=== PATIENT | female | born 1945 | race Caucasian/White ===

== ENCOUNTER → 2017-02-03 | Outpatient (CLI) | payer OTHER ==
--- NOTE | 2017-02-03 14:31 | KCIC ---
EXAM: Left knee, 3 views. HISTORY: Pain. COMPARISON: None. FINDINGS: Frontal, lateral and oblique views of the left knee are obtained. There is no fracture, dislocation or subluxation. There is minimal patellofemoral osteoarthritis. There is a small joint effusion. There is a bone island within the lateral femoral condyle. IMPRESSION: Minimal patellofemoral osteoarthritis and small joint effusion. Electronically signed by: Oliva Wiseman MD (02/03/2017 2:28 PM) [place] [id number]
== END | disposition home or self-care (01) ==
LOC: KCIC 14:07
PROVIDERS: ATTEND Family Medicine
DX: M17.12 Unilateral primary osteoarthritis, left knee (principal); M25.462 Effusion, left knee
CPT/HCPCS: 73562

== ENCOUNTER → 2017-03-05 | Outpatient (CLI) | payer OTHER ==
--- NOTE | 2017-03-05 15:03 | KCIC ---
Examination: MRI of the left knee without contrast HISTORY: History of left knee pain COMPARISON: None available TECHNIQUE: Multiplanar, multisequence MR imaging of the left knee were performed without contrast. FINDINGS: The anterior cruciate ligament, posterior cruciate ligament appear intact. There is mild increased signal identified in the posterior horn of the medial meniscus at its attachment probably a tear. There is mild increased signal identified throughout the medial meniscus likely due to degeneration. The lateral meniscus appears intact. The medial collateral ligament is intact. Lateral collateral ligamentous complex including the fibular collateral ligament, biceps femoris tendon, popliteus tendon appear intact. The distal attachment of the iliotibial band appears intact. The extensor mechanism is intact. Moderate knee joint effusion. There is serpiginous low T1 signal, T2 signal identified in the subchondral region of the medial tibial plateau likely fracture with moderate trabecular edema identified in the medial tibial plateau extending into the lateral proximal tibia. The medial, lateral retinaculum appear intact. There is deep fissuring of cartilage identified in the patellar trochlea. There is superficial fraying of cartilage identified in the medial, lateral compartments. Mild tricompartmental degenerative changes. IMPRESSION: 1. Serpiginous low T1, T2 signal identified in the subchondral region of the medial tibial plateau likely nondisplaced fracture with surrounding moderate trabecular edema. 2. Increased signal identified in the posterior horn of the medial meniscus at its posterior root likely tear. 3. Moderate knee joint effusion. 4. 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 Report was called to Bridget at ordering physician's office at time of dictation. Electronically signed by: Bridger Quiroz MD (03/05/2017 3:00 PM) [id number]
== END | disposition home or self-care (01) ==
LOC: KCIC MRI 13:51
PROVIDERS: ATTEND Family Medicine
DX: M94.262 Chondromalacia, left knee (principal); M25.462 Effusion, left knee
CPT/HCPCS: 73721

== ENCOUNTER → 2017-05-05 | Outpatient (CLI) | payer OTHER ==
--- NOTE | 2017-05-06 16:05 | KCIC ---
DATE: 05/05/2017 EXAM: MAMMO KELY SCREENING BILATERAL HISTORY: Asymptomatic screening mammogram. Sister with a history of breast cancer diagnosed at age 61. COMPARISON: Prior mammograms from 07/27/2014, 05/07/2013 This study was interpreted with the benefit of Computerized Aided Detection (CAD). The breast parenchyma shows scattered fibroglandular densities. Breast parenchyma level B. FINDINGS: Bilateral CC and MLO views of the breasts were performed. Bilateral breast tomosynthesis was performed in CC and MLO projections. Right breast: There is an asymmetry in the right breast at middle depth on the posterior nipple line. Recommend additional views to include spot compression CC view. This finding is not definitively seen on the MLO view. There is subtle architectural distortion suspected on tomosynthesis (image 38 CC tomosynthesis). Left breast: There are no suspicious microcalcifications, masses or areas of architectural distortion. Left breast is stable from prior mammogram. IMPRESSION: Incomplete right mammogram. Additional views are recommended to include a spot compression CC view with possible tomosynthesis. Negative left mammogram. BI-RADS CATEGORY: 0 INCOMPLETE: NEEDS ADDITIONAL IMAGING EVALUATION AND/OR PRIOR MAMMOGRAMS FOR COMPARISON. RECOMMENDED FOLLOW-UP: ADD ADDITIONAL IMAGING PQRS compliance statement: Patient information was entered into a reminder system with a target due date 05/05/2018 for the next mammogram. Mammography is a sensitive method for finding small breast cancers, but it does not detect them all and is not a substitute for careful clinical examination. A negative mammogram does not negate a clinically suspicious finding and should not result in delay in biopsying a clinically suspicious abnormality. "Our facility is accredited by the [employer] Mammography Program."
== END | disposition home or self-care (01) ==
LOC: KCIC MAMMO 12:46
PROVIDERS: ATTEND Family Medicine
DX: Z12.31 Encounter for screening mammogram for malignant neoplasm of breast (principal); Z80.3 Family history of malignant neoplasm of breast
CPT/HCPCS: 77063; G0202; 77067

== ENCOUNTER → 2017-05-21 | Outpatient (CLI) | payer OTHER ==
--- NOTE | 2017-05-21 12:03 | KCIC ---
DATE: May 21, 2017 EXAM: DIGITAL DIAGNOSTIC RT with tomography HISTORY: Further evaluation of nodule seen centrally in the CC projection only. COMPARISON: Screening study dated May 05, 2017. This study was interpreted with the benefit of Computerized Aided Detection (CAD). 2-D digital mammographic view of the right breast was performed in the 90 degree mediolateral projection. 3-D digital tomosynthesis of the right breast was performed in the 90 degree mediolateral projection. Focal digital compression view of the right breast in the CC projection was performed. FINDINGS: The previously seen nodular density within the central aspect of the right breast in the CC projection resolves with the additional views. This is a benign finding. IMPRESSION: Benign finding of the right breast. Recommend routine screening mammography in one year. BI-RADS CATEGORY: 2 BENIGN FINDING RECOMMENDED FOLLOW-UP: 12M 12 MONTH FOLLOW-UP PQRS compliance statement: Patient information was entered into a reminder system with a target due date May 06, 2018 for the next mammogram. Mammography is a sensitive method for finding small breast cancers, but it does not detect them all and is not a substitute for careful clinical examination. A negative mammogram does not negate a clinically suspicious finding and should not result in delay in biopsying a clinically suspicious abnormality. "Our facility is accredited by the [employer] Mammography [employer]."
== END | disposition home or self-care (01) ==
LOC: KCIC MAMMO 09:44
PROVIDERS: ATTEND Family Medicine
DX: R92.8 Other abnormal and inconclusive findings on diagnostic imaging of breast (principal)
CPT/HCPCS: G0206; 77065

== ENCOUNTER → 2018-01-27 | Outpatient (CLI) | payer OTHER | END | disposition home or self-care (01) | LOC: KCIC 13:19 | DX: M25.522 Pain in left elbow (principal) | CPT/HCPCS: 73080 ==

== ENCOUNTER → 2018-08-25 | Outpatient (CLI) | payer OTHER ==
--- NOTE | 2018-08-25 17:44 | KCIC ---
Bilateral digital screening mammograms with 3-D tomosynthesis: Reason for examination: Routine screening. Comparison is made to previous studies dated 05/05/2017 and 07/27/2014. Bilateral mammograms in CC and oblique projections were obtained with 2-D imaging and 3-D tomosynthesis imaging on a Siemens Inspiration unit and reviewed on the workstation. Interpretation was made with the benefit of CAD. The skin and nipples show no abnormalities. No abnormal axillary lymph nodes are seen. The breast parenchyma shows scattered fatty and fibroglandular density. 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 There also appears to be 5.2 mm nodule in the 11:00 B position of the right breast. There also appears to be a faint 6.3 mm nodule present at approximately the 6:00 B position of the left breast. Further evaluation with ultrasound is recommended. There are no other new dominant masses, suspicious calcifications or architectural distortion. Impression: Small nodules in the 11:00 B position of the right breast and 6:00 B position of the left breast. Recommend further evaluation with ultrasound. BI-RADS Category 0: Incomplete. Needs additional imaging evaluation. "Our facility is accredited by the [employer] Mammography [employer]." This patient's information has been entered into a reminder system for the patient to be notified with the results of her examination and a target date for the next mammogram. Electronically signed by: Susy Ca MD (08/25/2018 5:41 PM) [id number]
== END | disposition home or self-care (01) ==
LOC: KCIC MAMMO 13:55
PROVIDERS: ATTEND Family Medicine
DX: Z12.31 Encounter for screening mammogram for malignant neoplasm of breast (principal); N63.11 Unspecified lump in the right breast, upper outer quadrant; N63.23 Unspecified lump in the left breast, lower outer quadrant
CPT/HCPCS: 77063; 77067

== ENCOUNTER → 2018-08-28 | Outpatient (CLI) | payer OTHER ==
--- NOTE | 2018-08-28 15:42 | KCIC ---
Bilateral breast ultrasound: Reason for examination: Nodules seen on screening mammogram. Comparison is made to mammographic exam dated 08/25/2018. Ultrasound examination was performed bilaterally in the areas of mammographic concern and in the axilla. In the right breast, no discrete cystic or solid nodules or architectural distortions are seen. No abnormal appearing lymph nodes are seen in the axilla. In the left breast in the 6:00 position 6 cm from the inframammary fold, there is a 4.9 x 4.7 mm fibrocystic type lesion. No other cystic or solid lesions are seen. No abnormal appearing lymph nodes are seen in the left axilla. IMPRESSION: No focal or suspicious abnormality seen in the right breast. Recommend reevaluation in 6 months with right breast mammograms and ultrasound. Benign-appearing 4.9 mm fibrocystic lesion in the 6:00 position of the left breast. Recommend 6 month sonographic follow-up. BI-RADS Category 3: Probably Benign. "Our facility is accredited by the [employer] Mammography [employer]." This patient's information has been entered into a reminder system for the patient to be notified with the results of her examination and a target date for the next mammogram. Electronically signed by: Susy Ca MD (08/28/2018 3:39 PM) [id number]
== END | disposition home or self-care (01) ==
LOC: KCIC US 07:47
PROVIDERS: ATTEND Family Medicine
DX: R92.8 Other abnormal and inconclusive findings on diagnostic imaging of breast (principal)
CPT/HCPCS: 76641

== ENCOUNTER → 2019-03-08 | Outpatient (CLI) | payer OTHER ==
--- NOTE | 2019-03-08 14:06 | KCIC ---
Right digital diagnostic mammogram with tomosynthesis and left breast ultrasound Reason for examination: Follow-up of probably benign right upper outer breast mammographic nodularity and left lower breast fibrocystic lesion. Comparison is made to previous study dated breast sonography August 28, 2018 and mammogram August 25, 2018 Routine CC and MLO digital views obtained. Interpretation was made with the benefit of CAD. Right mammogram: The skin and nipples show no abnormalities. No abnormal lymph nodes are seen. The breast parenchyma is scattered fibroglandular elements. (Breast density: Category B.) There are no suspicious masses, suspicious calcifications or architectural distortions. The right upper outer breast mid depth demonstrates a subcentimeter intramammary lymph node with fatty hilum representing the nodule in question, considered benign Left breast ultrasound: Left breast 6:00 position mid depth demonstrates a cystic lesion with thin internal septations versus a cluster of cysts measuring 5 x 3 mm, which may be partially collapsed since the prior study otherwise remains stable, considered probably benign. Impression: Right upper outer breast intramammary lymph node. Left lower breast subcentimeter fibrocystic lesion is stable to slightly smaller, considered probably benign. Follow-up left breast ultrasound 6 months is advised to document continued stability. Continuing screening mammography. BI-RADS Category 3: Probably benign. "Our facility is accredited by the [employer] Mammography Program." This patient's information has been entered into a reminder system for the patient to be notified with the results of her examination and a target date for the next mammogram. Electronically signed by: Meño Rivera MD (03/08/2019 2:02 PM) [id number]
== END | disposition home or self-care (01) ==
LOC: KCIC MAMMO 12:37
PROVIDERS: ATTEND Family Medicine
DX: N63.11 Unspecified lump in the right breast, upper outer quadrant (principal); N60.12 Diffuse cystic mastopathy of left breast
CPT/HCPCS: 76641; 77065; G0279; 77061

== ENCOUNTER → 2019-06-21 | Outpatient (CLI) | payer OTHER ==
--- NOTE | 2019-06-21 15:03 | KCIC ---
Bilateral renal ultrasound and bilateral renal artery duplex ultrasound study without comparison for uncontrolled hypertension and multiple medications. TECHNIQUE AND FINDINGS: Real-time grayscale and color Doppler evaluation of the kidneys and urinary bladder is performed along with color and spectral Doppler evaluation of the renal vasculature. FINDINGS: The right kidney measures 11.2 x 4.9 x 4.2 cm and the left measures 12.1 x 3.8 x 5.2 cm. There is no hydronephrosis or perinephric fluid involving either kidney. On the left there is at least one nonobstructing shadowing renal calculus measuring roughly 7 mm. On the right there are 2 exophytic simple appearing cyst. There is normal color flow to both kidneys. The urinary bladder is fluid distended and grossly unremarkable. The aorta is poorly visualized due to overlying bowel gas, but demonstrates peak systolic velocity of 138.8 cm/s. The proximal portion of both renal arteries is also obscured by bowel gas. Peak systolic velocity of the middle right renal artery is 178.2 cm/s, constituting a ratio 1.3, and the peak systolic velocity of the distal left renal artery is 153.9 cm/s, constituting a ratio of 1.1. There is no evidence of hemodynamic significant renal artery stenosis. IMPRESSION: 1. Poorly visualized proximal renal arteries bilaterally. There are no secondary signs of hemodynamically significant renal artery stenosis, however if there strong clinical concern, further evaluation with CTA should be considered. 2. Nonobstructing left renal calculi. 3. Simple exophytic cysts on the right. Electronically signed by: Jude Marie MD (06/21/2019 3:00 PM) [facility]
== END | disposition home or self-care (01) ==
LOC: KCIC US 07:47
PROVIDERS: ATTEND Family Medicine
DX: N20.0 Calculus of kidney (principal); N28.1 Cyst of kidney, acquired; I10 Essential (primary) hypertension
CPT/HCPCS: 76770

== ENCOUNTER → 2019-11-30 | Outpatient (CLI) | payer MEDICARE ==
--- NOTE | 2019-12-02 09:36 | SLEEP ---
DATE OF STUDY: 11/30/2019 SLEEP STUDY ATTENDING PHYSICIAN: Magdiel Orlando MD The patient is 73 years old who weighs 238 pounds with a BMI of 38. The patient had a previous sleep study and was positive for [place] and has been on CPAP at 13 cm water. The patient was referred for reevaluation. During the night study, the patient spent 422 minutes in bed and slept for 351 minutes with a sleep efficiency of 83%. Sleep latency was 30 minutes with a REM latency of 204 minutes. Sleep architecture showed normal stage 1 and stage 2 sleep, increased slow wave and reduced REM sleep, which was 12% of the total sleep time. During the initial diagnostic portion of the study, the patient slept for 69 minutes. During that time, the patient had 2 obstructive apneas, no mixed or central apneas and 33 hypopneas. The patient's AHI was 31 per hour with a supine AHI of 31 per hour and no REM sleep was observed. EKG monitoring revealed an average heart rate of 63 beats per minute, no sustained arrhythmias observed. No PLMs observed. Nocturnal oximetry study revealed a mean oxygen saturation of 95% with the lowest of 89%. The patient met the criteria for CPAP initiation. It was started at 7 cm water as the patient was unable to tolerate lower pressure. The patient did well at this pressure. The patient slept for 283 minutes. The patient had supine as well as REM sleep. The patient's AHI was 0 per hour and oxygen saturation remained above 91%. The patient used medium sized nasal pillows. IMPRESSION: 1. Severe obstructive sleep apnea at an AHI of 31 per hour. 2. No clinically significant nocturnal hypoxia. 3. No clinically significant periodic limb movements. RECOMMENDATIONS: 1. CPAP at 7 cm water completely eliminated the patient's sleep apnea and should be used on a nightly basis. 2. Follow up in 4-6 weeks to assess compliance with CPAP and to document clinical improvement. 3. Weight loss is strongly advised. 4. Avoid SKEIN WASHER depressants. 5. Cautioned regarding driving until symptoms of sleep apnea resolve with the use of CPAP. RK MOORE MD DR: NINA/leyla JOB#: [id number] / [id number] MAGDIEL Dinero MD
== END | disposition home or self-care (01) ==
LOC: RT 19:06
PROVIDERS: ATTEND Family Medicine
DX: G47.33 Obstructive sleep apnea (adult) (pediatric) (principal)
CPT/HCPCS: 95810

== ENCOUNTER → 2020-08-28 | Outpatient (CLI) | payer MEDICARE ==
--- NOTE | 2020-08-28 16:51 | RAD ---
Examination: 1. Bilateral digital diagnostic mammogram. 2. Limited left breast ultrasound. INDICATION: 74-year-old woman due for mammographic screening presenting for short-term follow-up prob ably benign left breast nodule at the 6:00 mid depth position. COMPARISON: Diagnostic mammogram and left breast ultrasound of 03/08/2019 and bilateral mammogram of TECHNIQUE: CC and MLO views of both breasts were obtained with 2-D and 3-D technique and reviewed wit h computer-aided detection. Targeted ultrasound of the left breast was next pursued. FINDINGS: Scattered fibroglandular densities. Negative right mammogram. Stable 2 cm mixed calcified and soft tissue mass in the lateral left breast, compatible with a hyalin izing fibroadenoma. Targeted ultrasound of the left breast at the 6:00 position 3 cm from the nipple shows a tiny, oval c ircumscribed nodule 2 mm in diameter with an adjacent vessel. This represents a decrease in size from previously measuring 4.7 mm. IMPRESSION: Benign findings on bilateral digital diagnostic mammogram and targeted left breast ultrasound. No layo dence of malignancy. BI-RADS Category 2 Benign findings Recommend return to routine screening next due in one year. Patient entered into a reminder system with targeted due date for next mammogram. Electronically signed by: Oriana Fabian MD (08/28/2020 4:49 PM) [id number]
== END ==
LOC: MAMMO 11:06
PROVIDERS: ATTEND Nurse Practitioner Gerontology
DX: N63.24 Unspecified lump in the left breast, lower inner quadrant (principal)
CPT/HCPCS: 76641; 77066; G0279; 77062

== ENCOUNTER → 2021-09-05 | Outpatient (CLI) | payer MEDICARE ==
--- NOTE | 2021-09-05 14:24 | KCIC ---
Bilateral digital screening mammograms with 3-D tomosynthesis: Reason for examination: Routine screening. Comparison is made to previous studies dated back to 05/05/2017. Bilateral mammograms in CC and oblique projections were obtained with 2-D imaging and 3-D tomosynthes is imaging on a Siemens Inspiration unit and reviewed on the workstation. Interpretation was made wit h the benefit of CAD. The skin and nipples show no abnormalities. No abnormal axillary lymph nodes are seen. The breast par enchyma shows scattered fatty and fibroglandular density. (Breast density: Category B.) There continu es to be a lobulated nodule with coarse calcifications consistent with a degenerating fibroadenoma at the 2:00 position anteriorly in the left breast which is stable. There are no new dominant masses, s uspicious calcifications or architectural distortion. A few benign calcifications are seen. Impression: No evidence of malignancy. Recommend routine screening. BI-RAD Category 2: Benign. "Our facility is accredited by the [employer] Mammography Program." This patient's information has been entered into a reminder system for the patient to be notified wit h the results of her examination and a target date for the next mammogram. Electronically signed by: Susy Ca MD (09/05/2021 2:22 PM) [id number]
== END ==
LOC: KCIC MAMMO 13:08
PROVIDERS: ATTEND Family Medicine
DX: Z12.31 Encounter for screening mammogram for malignant neoplasm of breast (principal)
CPT/HCPCS: 77063; 77067